=== PATIENT | female | born 1960 | race Two or more races ===

== ENCOUNTER 2024-12-06 16:56 | Emergency (ER) | payer OTHER ==
[~2024-12-06] VITALS: Ht 165.1 cm; Wt 91.3 kg
--- NOTE | 2024-12-06 17:34 | ECG ---
[facility] Test Date: 2024-12-06 Test Time: 17:28:41 Pat Name: MAYCO HERNANDEZ Department: ER Room: Gender: F Patient Registration Manager: VERO : 1960 Requested By: ELAINE JETER Order Number: [id number] Reading MD: Pb Villarreal Measurements Intervals [place] Rate: 70 P: 23 WI: 166 QRS: -15 QRSD: 77 T: 31 QT: 398 QTc: 430 Interpretive Statements Sinus rhythm Borderline left axis deviation Low voltage, precordial leads Probable anteroseptal infarct, old Electronically Signed On 12-07-2024 16:09:28 PST by Pb Villarreal Please click the below link to view image of tracing.
[2024-12-06 19:45] VITALS: BP 124/62; PULSE 67; RESP 17; TEMP 97.6; O2SAT 100
[2024-12-06] MEDS: ONDANSETRON ODT 4 MG TAB PO ONE (19:55)
[2024-12-06] MEDS: HYDROcodone-ACET 10/325MG TAB PO ONE (19:55)
--- NOTE | 2024-12-06 19:56 | DVH ---
Exam: CT HEAD WITHOUT CONTRAST History: Right-sided frontal headache Technique: [address] images through the posterior fossa and the supratentorial compart ment were acquired without contrast and imaged using soft tissue and bone algorithms. RADIATION DOSE: DLP 1032.0 mGy.cm; CTDI vol 52.36 mGy. Comparison: None Findings: There is no evidence of an intracranial hemorrhage, acute large vessel infarct, mass effect, or midli ne shift. Cerebellar encephalomalacia. Cortical calcifications of the occipital lobe. Partial opacification of the right mastoid air cells. Complete opacification of the left mastoid air cells. The calvarium, orbits, paranasal sinuses, sella, and middle ears are unremarkable. Suboccipital craniotomy with postsurgical changes. Impression: 1. No acute intracranial abnormality. 2. Suboccipital craniotomy with underlying postsurgical changes. 3. Bilateral mastoid effusions, left greater than right.
[2024-12-06] MEDS ORDERED: IBUP-1455 PO (20:25)
--- NOTE | 2024-12-06 20:25 | ED.PDOC ---
HPI (NEURO) HPI Comments This patient is a 64-year-old morbidly obese female who arrives to the ED today with her daughter due to complaints of headache with blurry vision and forgetfulness that started yesterday and continued into today. Patient's daughter states that is a right-sided frontal headache that has been unrelenting since yesterday. 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 Per daughter, patient states she has had blurred vision as well as display confusion since yesterday. Daughter denies any fever nausea or vomiting. Vital signs were stable at arrival. Chief Complaint: Headache Time Seen by MD: 17:40 Primary Care Provider: CALLI Lopez Notes: Nurses Notes Information Source: Patient, Relative (Child) Mode of Arrival: Wheelchair Severity: Moderate Dizziness/Weakness Severity: Unable to do activities Headache Severity: Moderate Timing: Days Duration: Since onset Prehospital treatment: None Headache Quality: Throbbing, Sharp Headache Location: Frontal Onset: At rest Circumstances: Spontaneous Symptoms: Vertigo Before: Normal After: Confusion History of: CVA, Other (Occipital tumor) Associated Signs and Symptoms: Headache, Blurred Vision Past Medical History PAST MEDICAL HISTORY: Denies Past Medical History (Other): History of intracranial concerns and occluding occipital tumor and occipital strokes. Surgical History (Other): Occipital craniotomy to remove occipital mass. [employer] History: No Pertinent [employer] History Family History Family History: Reviewed,noncontributory to illness, No family hx of Cancer, No family hx of DM, No family hx of Heart brina, No family hx of HTN, No family hx ofKidney brina, No family hx of Liver brina, No family hx of Lung brina, No family hx of Stroke Social History Smoker: Non-Smoker Alcohol: Denies ETOH Use Drugs: Denies Drug Use Lives In: Home Constitutional: denies: chills, diaphoresis, fatigue, fever, malaise, sweats, weakness, others EENTM: reports: blurred vision; denies: double vision, ear bleeding, ear discharge, ear drainage, ear pain, ear ringing, eye pain, eye redness, hearing loss, mouth pain, mouth swelling, nasal discharge, nose bleeding, nose congestion, nose pain, photophobia, tearing, throat pain, throat swelling, voice changes, others Respiratory: denies: cough, hemoptysis, orthopnea, SOB at rest, shortness of breath, SOB with excertion, stridor, wheezing, others Cardiovascular: denies: chest pain, dizzy spells, diaphoresis, Dyspnea on exertion, edema, irregular heart beat, left arm pain, lightheadedness, palpitations, PND, syncope, others Gastrointestinal: denies: abdomen distended, abdominal pain, blood streaked bowels, constipated, diarrhea, dysphagia, difficulty swallowing, hematemesis, melena, nausea, poor appetite, poor fluid intake, rectal bleeding, rectal pain, vomiting, others Genitourinary: denies: abnormal vagina bleeding, burning, dyspareunia, dysuria, flank pain, frequency, hematuria, incontinence, pain, , vagina discharge, urgency, others Neurological: reports: headache; denies: dizziness, fainting, left sided numbness, left sided weakness, numbness, paresthesia, pre-existing deficit, right sided numbness, right sided weakness, seizure, speech problems, tingling, tremors, weakness, others Musculoskeletal: denies: back pain, gout, joint pain, joint swelling, muscle pain, muscle stiffness, neck pain, others Integumetry: denies: bruises, change in color, change in hair/nails, dryness, laceration, lesions, lumps, rash, wounds, others Allergic/Immunocompromised: denies: Difficulty Healing, Frequent Infections, Hives, Itching, others Hematologic/Lymphatic: denies: anemia, blood clots, easy bleeding, easy bruising, swollen glands, others Endocrine: denies: excessive hunger, excessive sweating, excessive thirst, excessive urination, flushing, intolerance to cold, intolerance to heat, unexplained weight gain, unexplained weight loss, others Psychiatric: denies: anxiety, bipolar disorder, depression, hopeless, panic disorder, schizophrenia, sleepless, suicidal, others Unable to Obtain due to: Other (Confusion) Physical Exam Exam Comments Patient appears to be in poor overall health. General Appearance: Moderate Distress ([id number] distress due to headache concerns.), Obese HEENT: Head (Unremarkable cranial evaluation. No signs of trauma. No skull depressions or deformities.), Normal ENT Inspection, Pharynx Normal, TMs Normal Neck: Full Range of Motion, Non-Tender, Normal, Normal Inspection Respiratory: Chest Non-Tender, Lungs Clear, No Accessory Muscle Use, No Respiratory Distress, Normal Breath Sounds Cardiovascular: No Edema, No JVD, No Murmur, No Gallop, Normal Peripheral Pulses, Regular Rate/Rhythm Breast Exam: Deferred Gastrointestinal: No Organomegaly, Non Tender, No Pulsatile Mass, Normal Bowel Sounds, Soft Genitalia: Deferred Pelvic: Deferred Rectal: Deferred Extremities: No calf tenderness, Normal capillary refill, Non-tender, No pedal edema Neurologic: Alert, No Sensory Deficits Cerebellar Function: NOT DONE Reflexes: NOT DONE Skin: Dry, Normal Color, Warm Lymphatic: No Adenopathy Was a procedure done? Was a procedure done?: No Differential Diagnosis (SZ) Seizure: N/A Headache: Other (Headache, intracranial mass, subarachnoid hemorrhage, subdural hematoma) X-Ray, Labs, Meds, VS Vital Signs Date Time Temp Pulse Resp B/P (MAP) Pulse Ox O2 Delivery O2 Flow Rate FiO2 12/06/24 20:09 Room Air* 0 21 12/06/24 19:45 97.6 67 17 124/62 (82) 100 97.6 12/06/24 17:28 70 12/06/24 17:23 98.2 71 18 134/74 (94) 99 Lab Test 12/06/24 17:13 Range/Units POC Glucose 77 70-106 mg/dl Current Medications Medications (Trade) Dose Ordered Sig/Shaw Route Start Time Stop Time Status Last Admin Acetaminophen/ Hydrocodone Bitart (Maple 10/325MG Tab) 1 tab ONCE ONCE PO 12/06/24 18:30 12/06/24 18:31 DC 12/06/24 19:55 Ondansetron HCl (Zofran Po) 4 mg ONCE ONCE PO 12/06/24 18:30 12/06/24 18:31 DC 12/06/24 19:55 X-Ray, Labs, Meds, VS Comment All studies performed the ED were evaluated by me personally. CT of head was unremarkable for any acute process. Patient appears to be suffering from a headache that is causing dizziness and confusion. Advised patient utilize medication for pain as needed and advised daughter to follow up with primary care provider and neurologist for continued evaluation and management. Time of 1ST Reevaluation: 20:22 Reevaluation 1ST: Improved Consultation: PCP, Neurology Patient Education/Counseling: Diagnosis, Treatment Family Education/Counseling: Diagnosis, Treatment Departure 1 Departure Time of Disposition: 20:22 Impression: Primary Impression: Headache Disposition: HOME / SELF CARE / HOMELESS Condition: Stable Additional Instructions: Advised patient utilize pain medication as needed but additionally, if symptoms continue, patient will need to follow up with the primary care provider for re- evaluation and possible neurologic referral and evaluation. e-Prescriptions Tramadol Hcl (Tramadol Hcl) 50 Mg Tab 50 MG PO Q6HP PRN, #10 TAB Prov: CHARLI ELLIOTT PAC 12/06/24 Ibuprofen Micronized (Ibuprofen) 800 Mg Tab 800 MG PO Q8HP PRN, #20 TAB Prov: CHARLI ELLIOTT PAC 12/06/24 Discharged With: Self, Relative Critical Care Note Critical Care Time?: No Stability Stability form required: No Heart Score Heart Score: Heart Score Response (Comments) Value History Slightly Suspicious 0 EKG Repolarization Disturb 1 Age 45-64 1 Risk Factors 1 or 2 risk factors 1 Troponin N/A 0 Total 3 CHARLI ELLIOTT PAC Dec 06, 2024 20:25
[2024-12-06] MEDS ORDERED: TRAM50TA2 PO (20:29)
== END 2024-12-06 20:50 | disposition home or self-care (01) ==
LOC: ER 16:56
DX: R51.9 Headache, unspecified (principal); R42 Dizziness and giddiness; R53.1 Weakness; R41.0 Disorientation, unspecified; Z86.73 Personal history of transient ischemic attack (TIA), and cerebral infarction without residual deficits; Z98.890 Other specified postprocedural states
CPT/HCPCS: 70450; 82962; 93005; 99284; Q0162